=== PATIENT | female | born 1990 | race Two or more races ===

== ENCOUNTER 2020-12-11 14:51 | Outpatient (REF) | payer OTHER, MEDICAID, SELFPAY | END 2020-12-11 14:52 | disposition home or self-care (01) | LOC: HO.LNP 14:51 | PROVIDERS: Visit Provider Internal Medicine | DX: Z20.822 Contact with and (suspected) exposure to COVID-19 (principal); Z02.1 Encounter for pre-employment examination | CPT/HCPCS: U0003; U0005 ==

== ENCOUNTER 2023-07-07 14:44 | Outpatient (REF) | payer OTHER, SELFPAY ==
--- NOTE | ~2023-07-07 | XR_ITS ---
EXAMINATION: XR HIP, LEFT CLINICAL INFORMATION: History of left hip replacement and left hip pain. Patient states pain for 3 days. No injury. COMPARISON: 03/10/2016 TECHNIQUE: 2 lateral and 2 AP views of the left hip. FINDINGS: Redemonstration of left total hip arthroplasty with long stemmed femoral component. Redemonstration of mild protrusio of the acetabular cuff. Similar-appearing lucency along the acetabular roof. Cerclage wire redemonstrated along the proximal femoral diaphysis. Heterotopic ossification again seen along the lateral aspect of the hip joint. XR/XR hip LT min 2V IMPRESSION: Left total hip arthroplasty. Hardware appears intact. Acetabular protrusio appears similar. Additional imaging with CT scan or MRI should be considered for better visualization as these modalities are much more sensitive for detection of fracture or other underlying pathology.
== END 2023-07-07 14:45 | disposition home or self-care (01) ==
LOC: HO.HHCX 14:44
PROVIDERS: Visit Provider Registered Nurse
DX: Z96.642 Presence of left artificial hip joint (principal); M25.552 Pain in left hip
CPT/HCPCS: 73502

== ENCOUNTER 2023-07-25 13:53 | Outpatient (AMB) | payer OTHER, SELFPAY ==
--- NOTE | 2023-07-25 14:00 | MHC.OFFVIS ---
Intake Vital Signs 07/25/23 14:03 Height 5 ft 3 in Weight 148 lb BMI 26.2 Intake Visit Reasons: [employer]- Left hip pain Intake Note: Kalyani 32 yr old female presents today with complaints of intermittent discomfort in her left hip. The patient states that she had a left hip infection as he is young child. She subsequently underwent a left hip fusion at age 15 at [facility]. The patient then underwent conversion of her left hip fusion to a left total hip arthroplasty performed at [facility] at age 25. She continues to exercise to stay in shape. She does have a stationary bike which she uses at home. She denies any fevers or chills. She takes Tylenol or ibuprofen intermittently for her discomfort. She denies any locking or giving way. Allergies nut - unspecified [nut] Allergy (Unknown, Unverified 07/25/23 14:17) UNKNOWN vancomycin [VANCOMYCIN] Allergy (Unknown, Unverified 07/25/23 14:17) UNKNOWN Medication List - Last Reconciled 07/25/23 by Yomi Lux MD No Known Home Meds [facility] Social History (Updated 07/25/23 @ 14:17 by RONALD Patel) Current occupational status: employed Current occupation: rt hand / RN Physical Exam Vital Signs: BMI result Body Mass Index 26.2 Const Other: Well-nourished well-developed very friendly female awake alert and oriented x3 in no acute distress Extrem Other: Bilateral lower extremity examination shows good capillary refill, no skin lesions noted, normal sensation light touch Left hip examination shows minimal discomfort with range of motion, minimal tenderness to palpation over her bursa, no overlying skin lesions Results Reviewed Results Reviewed: X-rays of the patient's left hip show a total hip arthroplasty in good position with no signs of loosening, no acute bony abnormalities Assessment & Plan Assessment & Plan (1) Left hip pain: Code(s): M25.552 - Pain in left hip Plan Ms. Mccall continues to do very well after undergoing conversion of her left hip fusion to a left total hip arthroplasty in 2014 at [facility]. At this point she does not appear to have anything mechanically wrong with her arthroplasty. She does have intermittent discomfort most likely due to scar tissue and bursitis. Activity modifications were discussed at length with the patient. She will contact me prior to her annual follow-up appointment should her symptoms worsen in any way. Feel free to call me at any time should questions regarding her orthopedic management arise. Thank you very much for asking me to see this very friendly patient. I spent 22 minutes in reviewing the patient's records and imaging studies, seeing the patient and documenting in the medical record. Coding Level of Care Code New Pt Level 2 (83145) Diagnoses Left hip pain M25.552
[2023-07-25 14:03] VITALS: BMI 26.2
== END 2023-07-25 14:42 | disposition home or self-care (01) ==
PROVIDERS: PCP Internal Medicine; Visit Provider Orthopaedic Surgery
DX: M25.552 Pain in left hip (principal)
CPT/HCPCS: 99202

== ENCOUNTER → 2023-07-25 13:53 | Outpatient (BNVA) | payer OTHER, SELFPAY | PROVIDERS: PCP Internal Medicine; Visit Provider Orthopaedic Surgery ==

== ENCOUNTER 2023-10-06 15:32 | Outpatient (REF) | payer OTHER, SELFPAY ==
[2023-10-06 16:25] LABS: MANUAL DIFF FLAG NO
[2023-10-06 16:32] LABS: Basophils Absolute Auto 0.1 X10*3/uL (0.0-0.2); Basophils Percent Auto 0.8 % (0-2); Eosinophils Absolute Auto 0.1 X10*3/uL (0.0-0.4); Eosinophils Percent Auto 1.2 % (0-4); Hematocrit 35.7 % (37.0-47.0); Hemoglobin 11.5 g/dl (12.0-16.0); Imm Gran Abs Auto 0.02 X10*3/uL (0.00-0.03); Imm Gran Pct Auto 0.3 % (0.0-0.4); Lymphocytes Absolute Auto 2.2 X10*3/uL (1.2-4.9); Lymphocytes Percent Auto 33.8 % (20-40); Mean Corpuscular HGB Conc 32.2 g/dl (31.0-35.0); Mean Corpuscular Hemoglobin 28.3 pg (27.0-33.0); Mean Corpuscular Volume 87.9 fL (80.0-98.0); Mean Platelet Volume 12.8 fL (9.4-12.3); Monocytes Absolute Auto 0.3 X10*3/uL (0.1-1.2); Neutrophils Absolute Auto 3.9 x10*3/uL (2.0-8.3); Neutrophils Percent Auto 58.9 % (45-73); Platelet Count 230 X10*3/uL (160-400); Red Blood Count 4.06 X10*6/uL (4.20-5.50); Red Cell Distribution Width 13.4 % (11.0-16.0); White Blood Count 6.6 X10*3/uL (4.8-10.8)
== END 2023-10-06 15:33 | disposition home or self-care (01) ==
LOC: HO.HHCL 15:32
PROVIDERS: Visit Provider Internal Medicine
DX: J02.0 Streptococcal pharyngitis (principal)
CPT/HCPCS: 36415; 85025

== ENCOUNTER 2023-10-25 13:54 | Outpatient (REF) | payer OTHER, SELFPAY | END 2023-10-25 13:55 | disposition home or self-care (01) | LOC: HO.HHCL 13:54 | PROVIDERS: Visit Provider Internal Medicine | DX: Z00.00 Encounter for general adult medical examination without abnormal findings (principal); Z11.1 Encounter for screening for respiratory tuberculosis | CPT/HCPCS: 36415; 86481; 86787 ==

== ENCOUNTER 2024-01-11 10:16 | Outpatient (REF) | payer OTHER, SELFPAY ==
[2024-01-11 11:47] LABS: MANUAL DIFF FLAG NO
[2024-01-11 12:05] LABS: Basophils Absolute Auto 0.1 X10*3/uL (0.0-0.2); Basophils Percent Auto 0.6 % (0-2); Eosinophils Percent Auto 0.4 % (0-4); Hematocrit 37.3 % (37.0-47.0); Imm Gran Abs Auto 0.02 X10*3/uL (0.00-0.03); Imm Gran Pct Auto 0.2 % (0.0-0.4); Lymphocytes Absolute Auto 1.8 X10*3/uL (1.2-4.9); Lymphocytes Percent Auto 21.7 % (20-40); Mean Corpuscular HGB Conc 32.2 g/dl (31.0-35.0); Mean Corpuscular Hemoglobin 28.4 pg (27.0-33.0); Mean Corpuscular Volume 88.4 fL (80.0-98.0); Mean Platelet Volume 12.9 fL (9.4-12.3); Monocytes Absolute Auto 0.4 X10*3/uL (0.1-1.2); Monocytes Percent Auto 4.3 % (2-11); Neutrophils Percent Auto 72.8 % (45-73); Platelet Count 243 X10*3/uL (160-400); Red Blood Count 4.22 X10*6/uL (4.20-5.50); Red Cell Distribution Width 13.3 % (11.0-16.0); White Blood Count 8.3 X10*3/uL (4.8-10.8)
[2024-01-11 12:17] LABS: Anion Gap 14 (12-20); Blood Urea Nitrogen 12 mg/dL (9-16); Calcium 9.9 mg/dL (8.4-10.2); Carbon Dioxide 26 mmol/L (22-29); Chloride 103 mmol/L (96-108); Cholesterol 230 mg/dL (<200); Estimated Glomerular Filt Rate > 60; Glucose Random 99 mg/dL (60-115); HDL Cholesterol 105 mg/dL (>40); LDL Cholesterol Calculated 112 mg/dL (<100); Potassium 4.3 mmol/L (3.3-5.1); Sodium 139 mmol/L (135-145); Triglycerides 69 mg/dL (<150)
[2024-01-12 08:56] LABS: HIV AB/AG Nonreactive (Nonreactive); HIV Num 1 0.09 S/CO (0.00-0.99); ~HepC Num1 0.08 S/CO (0.00-0.79); ~Hepatitis C Antibody Nonreactive (Nonreactive)
[2024-01-12 11:13] LABS: RPR Rapid Plasma Reagin NON-REACTIVE (NON-REACTIVE)
== END 2024-01-11 10:17 | disposition home or self-care (01) ==
LOC: HO.HHCL 10:16
PROVIDERS: Visit Provider Nurse Practitioner Primary Care
DX: Z00.00 Encounter for general adult medical examination without abnormal findings (principal); Z13.6 Encounter for screening for cardiovascular disorders; N64.52 Nipple discharge; Z20.2 Contact with and (suspected) exposure to infections with a predominantly sexual mode of transmission
CPT/HCPCS: 36415; 80048; 80061; 85025; 86592; 86803; 87389

== ENCOUNTER 2025-05-19 16:30 | Outpatient (REF) | payer OTHER, SELFPAY ==
--- NOTE | ~2025-05-19 | XR_ITS ---
EXAMINATION: XR HIP, LEFT CLINICAL INFORMATION: h/o replacement May 2015 COMPARISON: July 07, 2023 TECHNIQUE: Two views of the left hip. FINDINGS: Total hip arthroplasty has been performed on the left. Acetabular cup is secured with 2 screws. There is a shallow acetabulum with minimal protrusio of the acetabular cup, unchanged.. There is a long femoral stem possibly related to a revision arthroplasty. There is a cerclage wire around the proximal femoral diaphysis. There is no sign of hardware migration or subsidence. There is heterotopic calcification cephalad to the neck region. There is bony remodeling of the proximal femur. XR/XR hip LT min 2V IMPRESSION: Stable left hip arthroplasty. Electronically signed by: Brandin Lao MD 05/19/2025 04:53 PM EDT
--- NOTE | ~2025-05-19 | XR_ITS ---
EXAMINATION: XR LUMBOSACRAL SPINE CLINICAL INFORMATION: Low back pain radiating to L buttock COMPARISON: None available. TECHNIQUE: Three views of the lumbosacral spine. FINDINGS: There is mild levoscoliosis. There are 5 nonrib-bearing lumbar segment. There is a sacralized L5 vertebral body. Left transverse process pseudoarticulating with the superior sacrum. This pseudoarticulation is sclerotic. 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 XR/XR lumbar spine 2-3V IMPRESSION: L4-5: Grade 2 anterolisthesis and pars intra-articular is defect. Sacralized L5 segment with pseudoarticulation of the left transverse process and superior sacrum. There is sclerosis at the pseudoarticulation. This could be pain source. Electronically signed by: Brandin Lao MD 05/19/2025 04:56 PM EDT
== END 2025-05-19 16:31 | disposition home or self-care (01) ==
LOC: HO.XRAY 16:30
PROVIDERS: PCP Nurse Practitioner Primary Care; Visit Provider Nurse Practitioner Primary Care
DX: M54.42 Lumbago with sciatica, left side (principal); M25.552 Pain in left hip
CPT/HCPCS: 72100; 73502

== ENCOUNTER → 2025-05-19 16:34 | Outpatient (BNV) | payer OTHER, SELFPAY | PROVIDERS: PCP Nurse Practitioner Primary Care; Visit Provider Radiology Diagnostic Radiology | DX: M25.552 Pain in left hip (principal); M54.50 Low back pain, unspecified | CPT/HCPCS: 72100; 73502 ==

== ENCOUNTER 2025-07-15 07:07 | Outpatient (RCR) | payer OTHER, SELFPAY | END 2025-09-02 15:05 | disposition home or self-care (01) | LOC: HO.PT 07:07 | PROVIDERS: PCP Nurse Practitioner Primary Care; Visit Provider Nurse Practitioner Primary Care | DX: M54.42 Lumbago with sciatica, left side (principal) | CPT/HCPCS: 97110; 97140; 97162; 97530 ==

== ENCOUNTER → 2025-07-24 08:48 | Outpatient (BNVA) | payer OTHER, SELFPAY | PROVIDERS: PCP Nurse Practitioner Primary Care; Visit Provider Emergency Medicine | DX: S00.83XA Contusion of other part of head, initial encounter (principal); W20.8XXA Other cause of strike by thrown, projected or falling object, initial encounter; R51.9 Headache, unspecified; Z02.79 Encounter for issue of other medical certificate | CPT/HCPCS: 99202 ==